=== PATIENT | female | born 1960 | race African-American/Black ===

== ENCOUNTER 2016-11-22 11:56 | Emergency (ER) | payer OTHER, MEDICAID ==
[~2016-11-22] VITALS: Ht 165.1 cm; Wt 101.6 kg
[~2016-11-22 11:56] MED LIST: ACET-709 PO; ALBU2.5V11 INH; ALPR0.25 PO; ALPR0.254 PO; ASPI-621 PO; ASPRIN; BENZ100C4 PO; BUDE10.2 INH; CETI10CA8 PO; CETI10TA18 PO; DIAZ5TAB4 PO; ESTR30CR VG; FENT1PAT9 TP; FEXO60TA9 PO; HYDR-3240 PO; IBUP800T PO; INSU100V SQ; INSU100V3 SQ; KETO10TA PO; LISI-167 PO; LOSA50TA6 PO; MECL-76 PO; MECL25TA2 PO; METF100010 PO; METF500T4 PO; METH750T87 PO; METO10TA82 PO; MONT10TA6 PO; NORCO; OMEP20CA9 PO; OMEP20TA62 PO; OMEP40CA6 PO; ONDA4TAB10 PO; ONDA4TAB7 PO; OXYC-96 PO; PREG50CA PO; PREMARIN; PROM25TA10 PO; SERT25TA PO; SERT25TA3 PO; SUCR1TAB26 PO; SUMA25TA3 PO; TOPI25TA32 PO; TRAM50TA2 PO; [UNRECOGNIZED DRUG - CODE] PO
[2016-11-22] MEDS ORDERED: INSU100V8 SQ (12:41)
[2016-11-22] MEDS ORDERED: SUMA25TA4 PO (12:41)
[2016-11-22] MEDS ORDERED: MELO15TA6 PO (12:41)
[2016-11-22] MEDS ORDERED: INSU100I7 SQ-INSULIN (12:41)
[2016-11-22] MEDS ORDERED: PIOG15TA9 PO (12:41)
[2016-11-22] MEDS ORDERED: OXYC-229 PO (12:41)
[2016-11-22] MEDS ORDERED: ASPIRIN 81 MG TABLET CHEW ONE (12:46)
[2016-11-22] MEDS ORDERED: SODIUM CHLORIDE 0.9% 1,000ML IVBOLUS ONE (13:00)
[2016-11-22] MEDS ORDERED: SODIUM CHLORIDE FLUSH 10ML SYR IVF ONE (13:00)
[2016-11-22] MEDS ORDERED: ASPIRIN 81 MG TABLET CHEW PO ONE (13:00)
[2016-11-22 13:14] LABS: RAPID INFLUENZA A Negative (Negative); RAPID INFLUENZA B Negative (Negative)
[2016-11-22 13:47] LABS: HEMOGLOBIN 13.1 g/dL (11.7-16.4)
[2016-11-22 14:50] LABS: BLOOD UREA NITROGEN 5 mg/dL (7-18)
[2016-11-22 14:58] LABS: IS PT STATUS REG ER OR PRE ER? YES
[2016-11-22 16:37] VITALS: BP 156/83
== END 2016-11-22 14:04 | disposition home or self-care (01) ==
LOC: ED 12:29
DX: B34.9 Viral infection, unspecified (principal); E78.5 Hyperlipidemia, unspecified; E11.9 Type 2 diabetes mellitus without complications; G43.909 Migraine, unspecified, not intractable, without status migrainosus; K21.9 Gastro-esophageal reflux disease without esophagitis; J45.909 Unspecified asthma, uncomplicated; I10 Essential (primary) hypertension; J44.9 Chronic obstructive pulmonary disease, unspecified; Z90.710 Acquired absence of both cervix and uterus
CPT/HCPCS: 36415; 71020; 80048; 82040; 83880; 84484; 85025; 87400; 93005; 96360; 96361; 99285; J7030

== ENCOUNTER 2016-12-01 15:11 | Emergency (ER) | payer MEDICARE, MEDICAID ==
[~2016-12-01] VITALS: Ht 165.1 cm; Wt 101.3 kg
[~2016-12-01 15:11] MED LIST changes: +INSU100I7 SQ-INSULIN; +INSU100V8 SQ; +MELO15TA6 PO; +OXYC-229 PO; +PIOG15TA9 PO; +SUMA25TA4 PO
[2016-12-01] MEDS ORDERED: SODIUM CHLORIDE FLUSH 10ML SYR IVF ONE (15:30)
[2016-12-01] MEDS ORDERED: ASPIRIN 81 MG TABLET CHEW PO ONE (15:30)
[2016-12-01 16:09] LABS: BLOOD UREA NITROGEN 10 mg/dL (7-18)
[2016-12-01 16:14] LABS: HEMOGLOBIN 13.3 g/dL (11.7-16.4)
[2016-12-01 16:18] LABS: IS PT STATUS REG ER OR PRE ER? YES
[2016-12-01 17:17] VITALS: BP 126/78
== END 2016-12-01 17:19 | disposition home or self-care (01) ==
LOC: ED 17:03
DX: R07.89 Other chest pain (principal); J44.9 Chronic obstructive pulmonary disease, unspecified; K21.9 Gastro-esophageal reflux disease without esophagitis; G43.909 Migraine, unspecified, not intractable, without status migrainosus; E11.9 Type 2 diabetes mellitus without complications; E78.5 Hyperlipidemia, unspecified; I10 Essential (primary) hypertension; Z86.718 Personal history of other venous thrombosis and embolism; Z88.5 Allergy status to narcotic agent; Z88.0 Allergy status to penicillin; Z88.8 Allergy status to other drugs, medicaments and biological substances
CPT/HCPCS: 36415; 71010; 80048; 82040; 84484; 85025; 93005; 99285

== ENCOUNTER 2017-01-18 13:09 | Emergency (ER) | payer OTHER, MEDICAID ==
[~2017-01-18] VITALS: Ht 165.1 cm; Wt 100.9 kg
[~2017-01-18 13:09] MED LIST changes: +GABA100C8 PO; +METH500T97 PO
[2017-01-18] MEDS ORDERED: DICL100G8 TP (14:22)
[2017-01-18] MEDS ORDERED: ESTR30CR TP (14:22)
[2017-01-18] MEDS ORDERED: POTA10CA PO (14:36)
[2017-01-18] MEDS ORDERED: CYCL-259 PO (14:36)
[2017-01-18] MEDS ORDERED: ALBU8.5H3 INH (14:36)
[2017-01-18] MEDS ORDERED: ALBU18HF INH (14:36)
[2017-01-18] MEDS ORDERED: LIDO5CRE19 TP (14:36)
[2017-01-18] MEDS ORDERED: FURO-93 PO (14:36)
[2017-01-18] MEDS ORDERED: LOSA25TA5 PO (14:36)
[2017-01-18] MEDS ORDERED: CARV3.1212 PO (14:36)
[2017-01-18] MEDS ORDERED: METH750T87 PO (14:36)
[2017-01-18] MEDS ORDERED: CANA100T PO (14:39)
[2017-01-18] MEDS ORDERED: CYCL1DRO OP (14:39)
[2017-01-18] MEDS ORDERED: ATOR20TA9 PO (14:39)
[2017-01-18 14:45] LABS: ASPARTATE AMINO TRANSFERASE 18 U/L (15-37); BLOOD UREA NITROGEN 11 mg/dL (7-18)
[2017-01-18 14:50] LABS: IS PT STATUS REG ER OR PRE ER? YES
[2017-01-18] MEDS ORDERED: KETOROLAC 30 MG/1 ML ONE (15:12)
[2017-01-18] MEDS ORDERED: KETOROLAC 30 MG/1 ML IVPush ONE (15:30)
[2017-01-18 16:09] VITALS: BP 109/74
== END 2017-01-18 16:11 | disposition home or self-care (01) ==
LOC: ED 15:27
DX: M94.0 Chondrocostal junction syndrome [Tietze] (principal); E11.9 Type 2 diabetes mellitus without complications; I10 Essential (primary) hypertension; J45.909 Unspecified asthma, uncomplicated; J44.9 Chronic obstructive pulmonary disease, unspecified; Z87.891 Personal history of nicotine dependence
CPT/HCPCS: 36415; 71020; 80053; 83690; 84484; 85025; 93005; 96374; 99285; J1885

== ENCOUNTER 2017-01-28 10:58 | Emergency (ER) | payer OTHER, MEDICAID ==
[~2017-01-28] VITALS: Ht 165.1 cm; Wt 100.0 kg
[~2017-01-28 10:58] MED LIST changes: +ALBU18HF INH; +ALBU8.5H3 INH; +ATOR20TA9 PO; +CANA100T PO; +CARV3.1212 PO; +CYCL-259 PO; +CYCL1DRO OP; +DICL100G8 TP; +ESTR30CR TP; +FURO-93 PO; +GABA-826 PO; -GABA100C8 PO; +LIDO5CRE19 TP; +LOSA25TA5 PO; +POTA10CA PO
[2017-01-28] MEDS ORDERED: METOCLOPRAMIDE 5 MG/ML, 2ML IVPush ONE (12:00)
[2017-01-28] MEDS ORDERED: SODIUM CHLORIDE 0.9% 1,000ML IVBOLUS ONE (12:00)
[2017-01-28] MEDS ORDERED: SODIUM CHLORIDE FLUSH 10ML SYR IVF ONE (12:00)
[2017-01-28] MEDS ORDERED: DIAZEPAM 5 MG/ML, 2ML IVPush ONE (12:00)
[2017-01-28] MEDS ORDERED: METOCLOPRAMIDE 5 MG/ML, 2ML ONE (12:47)
[2017-01-28 14:18] VITALS: BP 127/73
== END 2017-01-28 14:22 | disposition home or self-care (01) ==
LOC: ED 11:59
DX: G44.209 Tension-type headache, unspecified, not intractable (principal); R07.89 Other chest pain; I10 Essential (primary) hypertension; E11.9 Type 2 diabetes mellitus without complications; E78.5 Hyperlipidemia, unspecified; G43.909 Migraine, unspecified, not intractable, without status migrainosus; J44.9 Chronic obstructive pulmonary disease, unspecified; J45.909 Unspecified asthma, uncomplicated; Z88.0 Allergy status to penicillin; Z88.5 Allergy status to narcotic agent; Z87.891 Personal history of nicotine dependence
CPT/HCPCS: 70450; 93005; 96361; 96374; 96375; 99284; J2765; J3360; J7030

== ENCOUNTER 2017-03-02 07:11 | Emergency (ER) | payer OTHER, MEDICAID ==
[~2017-03-02] VITALS: Ht 165.1 cm; Wt 98.8 kg
[2017-03-02] MEDS ORDERED: OXYcodone/APAP 5/325MG TABLET PO ONE (08:00)
[2017-03-02] MEDS ORDERED: OXYcodone/APAP 5/325MG TABLET ONE (08:05)
[2017-03-02 08:21] LABS: BLOOD UREA NITROGEN 7 mg/dL (7-18)
[2017-03-02 09:30] VITALS: BP 123/71
== END 2017-03-02 09:33 | disposition home or self-care (01) ==
LOC: ED 09:02
DX: S39.012A Strain of muscle, fascia and tendon of lower back, initial encounter (principal); E10.65 Type 1 diabetes mellitus with hyperglycemia; Z91.14 Patient's other noncompliance with medication regimen; J44.9 Chronic obstructive pulmonary disease, unspecified; I10 Essential (primary) hypertension; K21.9 Gastro-esophageal reflux disease without esophagitis; E78.5 Hyperlipidemia, unspecified; Z88.0 Allergy status to penicillin; Z88.6 Allergy status to analgesic agent; Z88.8 Allergy status to other drugs, medicaments and biological substances; X58.XXXA Exposure to other specified factors, initial encounter; Y93.89 Activity, other specified; Y92.89 Other specified places as the place of occurrence of the external cause; Y99.9 Unspecified external cause status
CPT/HCPCS: 36415; 80048; 81003; 82040; 85025; 99284

== ENCOUNTER 2017-08-29 13:00 | Emergency (ER) | payer MEDICAID, OTHER ==
[~2017-08-29] VITALS: Ht 165.1 cm; Wt 100.2 kg
[~2017-08-29 13:00] MED LIST changes: -ALBU8.5H3 INH; +ALBU8.5H8 INH; +BENZ-17 PO; -BENZ100C4 PO; +DICL100G19 TP; -DICL100G8 TP; +IBUP-1223 PO; -IBUP800T PO; -OXYC-229 PO; +OXYC-293 PO; +OXYC-307 PO; -OXYC-96 PO; +PIOG15TA22 PO; -PIOG15TA9 PO; -SUCR1TAB26 PO; +SUCR1TAB33 PO
[2017-08-29] MEDS ORDERED: ASPIRIN 81 MG TABLET CHEW ONE (13:12)
[2017-08-29] MEDS ORDERED: ASPIRIN 81 MG TABLET CHEW PO ONE (13:30)
[2017-08-29] MEDS ORDERED: SODIUM CHLORIDE FLUSH 10ML SYR IVF ONE (13:30)
[2017-08-29 13:34] LABS: MEAN CORPUSCULAR HEMOGLOBIN 29.6 pg (27.0-34.8); MEAN CORPUSCULAR HGB CONC 32.8 g/dL (32.4-35.8); MEAN CORPUSCULAR VOLUME 90.3 fL (80-100); MEAN PLATELET VOLUME 7.7 fL (7.4-10.4); PLATELET COUNT 318 x10^3/uL (130-400); RED BLOOD COUNT 4.62 x10^6/uL (3.82-5.3); RED CELL DISTRIBUTION WIDTH 14.8 % (9.6-15.2)
[2017-08-29 13:44] LABS: ALBUMIN 3.4 g/dL (3.4-5.0); ANION GAP 7 mmol/L (5-15); CALCIUM 8.4 mg/dL (8.5-10.1); CHLORIDE 102 mmol/L (98-107)
[2017-08-29 13:49] LABS: ALANINE AMINOTRANSFERASE 20 U/L (12-78); ALKALINE PHOSPHATASE 114 U/L (45-117); BILIRUBIN,TOTAL 0.4 mg/dL (0.2-1.0); CREATININE 0.82 mg/dL (0.55-1.02); TOTAL PROTEIN 7.8 g/dL (6.4-8.2); TROPONIN I < 0.015 ng/mL (0.000-0.045)
[2017-08-29 13:50] LABS: MD YES
[2017-08-29 13:52] LABS: EOS#(MANUAL) 0.06 x10^3/uL (0.0-0.4); EOS% (MANUAL) 1 % (1-7); LYMPHS% (MANUAL) 41 % (22-44); MONOS#(MANUAL) 0.22 x10^3/uL (0.3-2.7); MONOS% (MANUAL) 4 % (2-9); SEG#(MANUAL) 3.02 x10^3/uL (1.8-6.8); SEGS% (MANUAL) 54 % (42-75)
[2017-08-29 13:53] LABS: <PLATELET ESTIMATE> ADEQUATE; <PLT MORPHOLOGY> NORMAL PLT MORPH; <RBC MORPHOLOGY> NORMAL
[2017-08-29] MEDS ORDERED: CETI5TAB3 PO (15:21)
[2017-08-29] MEDS ORDERED: LIRA0.6P SQ (15:21)
[2017-08-29] MEDS ORDERED: MONT10TA9 PO (15:21)
[2017-08-29] MEDS ORDERED: IBUPROFEN 200 MG TABLET PO ONE (15:30)
[2017-08-29 16:06] LABS: TROPONIN I < 0.015 ng/mL (0.000-0.045)
[2017-08-29 16:38] VITALS: BP 155/65
== END 2017-08-29 16:52 | disposition home or self-care (01) ==
LOC: ED 16:31
DX: R07.89 Other chest pain (principal); E11.65 Type 2 diabetes mellitus with hyperglycemia; E78.5 Hyperlipidemia, unspecified; I10 Essential (primary) hypertension; J44.9 Chronic obstructive pulmonary disease, unspecified; G43.909 Migraine, unspecified, not intractable, without status migrainosus; K21.9 Gastro-esophageal reflux disease without esophagitis; Z90.49 Acquired absence of other specified parts of digestive tract
CPT/HCPCS: 36415; 71045; 80053; 83880; 84484; 85025; 93005; 99285

== ENCOUNTER 2017-10-02 10:10 | Emergency (ER) | payer OTHER ==
[~2017-10-02] VITALS: Ht 165.1 cm; Wt 99.5 kg
[~2017-10-02 10:10] MED LIST changes: +CETI5TAB3 PO; +LIRA0.6P SQ; +MONT10TA9 PO
[2017-10-02 12:29] VITALS: BP 141/91
== END 2017-10-02 12:31 | disposition home or self-care (01) ==
LOC: ED 11:38
DX: J20.9 Acute bronchitis, unspecified (principal); J44.0 Chronic obstructive pulmonary disease with (acute) lower respiratory infection; E11.65 Type 2 diabetes mellitus with hyperglycemia; I10 Essential (primary) hypertension; E78.5 Hyperlipidemia, unspecified; Z90.710 Acquired absence of both cervix and uterus; Z86.718 Personal history of other venous thrombosis and embolism; Z88.0 Allergy status to penicillin; Z88.6 Allergy status to analgesic agent; Z88.8 Allergy status to other drugs, medicaments and biological substances
CPT/HCPCS: 71045; 93005; 99284